=== PATIENT | female | born 1960 | race African-American/Black ===

== ENCOUNTER 2016-06-03 07:02 | Day surgery (SDC) | payer OTHER ==
[~2016-06-03] VITALS: Ht 167.6 cm; Wt 117.0 kg
[~2016-06-03 07:02] MED LIST: AMLODIPINE5 MG PO; ASPIRIN EC81 MG PO; CITALOPRAM40 MG PO; CLONIDINE0.1 MG PO; CLOZAPINE100 MG PO; DAILY-VITE1 TAB PO; KLOR-CON M2020 MEQ PO; LEVEMIR1000 UNITS SC; LOSARTAN POTASS50 MG PO; MAXZIDE-25MG1 COMBO PO; METFORMIN500 MG PO; RISPERIDONE2 MG PO; SIMVASTATIN10 MG PO; TRAZODONE50 MG PO; VISTARIL25 MG PO
[2016-06-03] MEDS ORDERED: PERCOCET 5/325M1 TAB PO (10:49)
[2016-06-03] MEDS ORDERED: LIDOCAINE22 EX (10:50)
[2016-06-03 11:14] VITALS: BP 132/66
== END 2016-06-03 11:20 | disposition other institution (70) | DRG 349 ==
LOC: ORM 07:02
PROVIDERS: ATTEND Surgery
PROC: 06BY0ZC Excision of Hemorrhoidal Plexus, Open Approach (ICD-10-PCS; principal; 2016-06-03)
PROC: 0HB8XZX Excision of Buttock Skin, External Approach, Diagnostic (ICD-10-PCS; 2016-06-03)
DX: K64.4 Residual hemorrhoidal skin tags (principal); I10 Essential (primary) hypertension; D04.5 Carcinoma in situ of skin of trunk; E11.9 Type 2 diabetes mellitus without complications; E78.00 Pure hypercholesterolemia, unspecified; F32.9 Major depressive disorder, single episode, unspecified; F41.1 Generalized anxiety disorder; A63.0 Anogenital (venereal) warts
CPT/HCPCS: J2710

== ENCOUNTER 2016-07-01 08:15 | Day surgery (SDC) | payer OTHER ==
[~2016-07-01] VITALS: Ht 170.2 cm; Wt 114.3 kg
[~2016-07-01 08:15] MED LIST changes: +CLOZAPINE ODT150 MG PO; +LIDOCAINE22 EX; +PERCOCET 5/325M1 TAB PO
[2016-07-01] MEDS ORDERED: LORTAB 5/3255 MG PO (10:31)
[2016-07-01 12:01] VITALS: BP 127/58
== END 2016-07-01 12:15 | disposition other institution (70) | DRG 607 ==
LOC: ORM 08:15
PROVIDERS: ATTEND Surgery
PROC: 0HB8XZX Excision of Buttock Skin, External Approach, Diagnostic (ICD-10-PCS; principal; 2016-07-01)
DX: D04.5 Carcinoma in situ of skin of trunk (principal); I10 Essential (primary) hypertension; E78.00 Pure hypercholesterolemia, unspecified; E11.9 Type 2 diabetes mellitus without complications; F32.9 Major depressive disorder, single episode, unspecified; F41.1 Generalized anxiety disorder

== ENCOUNTER → 2017-12-11 | Outpatient (REF) | payer OTHER ==
[~2017-12-11] MED LIST changes: +LORTAB 5/3255 MG PO
[2017-12-11 09:41] LABS: HEMATOCRIT 38.1 % (37.0-47.0); HEMOGLOBIN 12.1 g/dl (12.0-16.0); IMMATURE GRANULOCYTES 0.6 % (0.0-5.0); MEAN CELL VOLUME 81.9 fL CALC (80.0-100.0); MEAN CORPUSCULAR HGB CONC 31.8 g/L CALC (32.0-36.0); NEUT# 4.42 thou/uL (2.00-7.15); RED BLOOD COUNT 4.65 mill/uL (4.20-5.60); RED CELL DISTRI WIDTH 15.5 % (11.5-15.5)
== END | disposition home or self-care (01) ==
LOC: LAB 09:12
PROVIDERS: ATTEND Psychiatry & Neurology Psychiatry
DX: G47.09 Other insomnia (principal); Z51.81 Encounter for therapeutic drug level monitoring; Z79.899 Other long term (current) drug therapy

== ENCOUNTER 2018-01-06 07:15 | Inpatient (IN) | payer OTHER ==
[~2018-01-06] VITALS: Ht 170.2 cm; Wt 80.0 kg
--- NOTE | 2018-01-06 07:23 | NUR ---
EMS TO ER ROOM 9, TO BED
--- NOTE | 2018-01-06 07:30 | NUR ---
IV INITIATED AND LABS COLLECTED. PT REPORTS FEELING TIRED AND BILATERAL LOWER EXTREMITY PAIN. RIGHT LEG IS HOT TO THE TOUCH, WITH EDEMA. ULCER LIKE AREA NOTED TO THE LATERAL SIDE OF RIGHT LOWER LEG. MINIMAL SEROSANGUINEOUS DRAINAGE NOTED. PT MAEW AND DENIES ANY NEEDS AT THIS TIME. CALL ARTEM SWENSON.
[2018-01-06 08:07] LABS: ALBUMIN 3.2 g/dL (3.2-5.0); ALKALINE PHOSPHATASE 91 u/l (38-126); ANION GAP 9 (6-22 (CALC)); BILIRUBIN, TOTAL 0.6 mg/dL (0.0-1.4); BUN 16 mg/dL (7-17); BUN/CREATININE RATIO 29 (12-20 (CALC)); CARBON DIOXIDE 34 mmol/l (22-30); CHLORIDE 98 mmol/l (95-108); CREATININE 0.6 mg/dL (0.5-1.0); GFR > 60 ML/MIN (>=60 (CALC)); GFR FOR AFR.AMER. > 60 ML/MIN (>=60 (CALC)); POTASSIUM 3.3 mmol/l (3.5-5.1); SGOT/AST 28 u/l (14-36); SODIUM 139 mmol/l (137-146); TOTAL PROTEIN 6.6 g/dL (6.3-8.2)
--- NOTE | 2018-01-06 08:09 | NUR ---
CALL PLACED TO [facility], THEY WILL BE BRINGING PATIENT'S MEDICATION LIST TO THE HOSPITAL.
[2018-01-06 08:18] LABS: HEMATOCRIT 33.1 % (37.0-47.0); HEMOGLOBIN 10.7 g/dl (12.0-16.0); IMMATURE GRANULOCYTES 0.4 % (0.0-5.0); MEAN CELL VOLUME 80.7 fL CALC (80.0-100.0); MEAN CORPUSCULAR HGB 26.1 pG CALC (26.0-32.0); MEAN CORPUSCULAR HGB CONC 32.3 g/L CALC (32.0-36.0); NEUT# 12.63 thou/uL (2.00-7.15); RED BLOOD COUNT 4.1 mill/uL (4.20-5.60); RED CELL DISTRI WIDTH 14.8 % (11.5-15.5)
--- NOTE | 2018-01-06 08:45 | NUR ---
PT PKACED ON BED STRONG, URINE SAMPLE COLLECTED. IV REMAINS INTACT AND FREE FROM REDNESS OR EDEMA.
[2018-01-06 09:00] LABS: URINE BILIRUBIN - DIPSTICK NEGATIVE (NEGATIVE); URINE BLOOD DIPSTICK NEGATIVE (NEGATIVE); URINE COLOR YELLOW; URINE GLUCOSE - DIPSTICK >=1000 mg/dL (NEGATIVE); URINE KETONE NEGATIVE (NEGATIVE); URINE LEUK ESTERASE NEGATIVE (NEGATIVE); URINE NITRITE - DIPSTICK NEGATIVE (Negative); URINE PH 6.5 (4.5-8.0); URINE PROTEIN - DIPSTICK NEGATIVE (NEG-TRACE); URINE SPECIFIC GRAVITY <=1.005; URINE UROBILINOGEN - DIPSTICK 0.2 E.U./dL (0.2)
[2018-01-06 09:04] LABS: URINE CLARITY CLEAR
--- NOTE | 2018-01-06 09:05 | NUR ---
BREAKFAST TRAY SERVED. PT EATING WITH NO DIFFICULTY AND DENIES ANY OTHER NEEDS. CALL MCGILL WITHIN REACH.
--- NOTE | 2018-01-06 09:37 | NUR ---
PT REPORT TAKEN FROM LAURA PEACOCK.
--- NOTE | 2018-01-06 10:17 | NUR ---
BRENNAN spoke with regarding admission status and advised observation for the cellulitis. BRENNAN will confer with the attending when the patient arrives to [facility].
[2018-01-06] MEDS ORDERED: SIMVASTATIN10 MG PO (10:35)
[2018-01-06] MEDS ORDERED: CLOZAPINE100 MG PO (10:35)
[2018-01-06] MEDS ORDERED: LEVEMIR FL100 UNIT/M SC (10:36)
[2018-01-06] MEDS ORDERED: HYDROXYZ HCL25 MG PO (10:36)
[2018-01-06] MEDS ORDERED: AMMONIUM LAC122 EX (10:37)
--- NOTE | 2018-01-06 10:37 | NUR ---
PT RESTING QUIETLY ON STRETCHER WITH EYES CLOSED. OBTAINED MEDICATION RECONCILLIATION FORM FROM [facility]. UNKNOWN PHARMACY THAT THEY USE. IV SITE PATENT. VITAL SIGNS STABLE
[2018-01-06] MEDS ORDERED: TRAZODONE50 MG PO (10:38)
[2018-01-06] MEDS ORDERED: CITALOPRAM20 MG PO (10:39)
[2018-01-06] MEDS ORDERED: ASPIRIN LOW DOS81 MG PO (10:39)
[2018-01-06] MEDS ORDERED: RISPERIDONE2 MG PO (10:40)
[2018-01-06] MEDS ORDERED: LOSARTAN POT50 MG PO (10:40)
--- NOTE | 2018-01-06 11:02 | NUR ---
REPORT GIVEN TO MED SURG FOR CONTINUATION OF CARE.
--- NOTE | 2018-01-06 11:07 | NUR ---
PT ARRIVED ON THE UNIT VIA [facility] WITH DOUG PEACOCK.[facility]. PT PLEASANT. ORIENTED TO PERSON, PLACE, MONTH, YEAR. PT ABLE TO ANSWER MOST QUESTIONS APPROPRIATELY. ASSESSMENT COMPLETED AT THIS TIME. LUNG SOUNDS CLEAR BILATERALLY.HEART SOUNDS NORMAL. BS ACTIVE. SCANT EDEMA NOTED TO RIGHT LOWER LEG. ULCER AREA ALSO NOTED WITH NO DRAINAGE. LEFT KNEE ALSO HAS ULCER AREA NO DRAINAGE NOTED. PT HAS HX OF FREQUENT FALLS. LAST FALL ON 01/05 PER PT. PT IS AMBULATORY WITH MINIMAL ASSIST. #22 LAC FLUSHES WELL, NO REDNESS OR EDEMA NOTED. PT REQUESTING TO WATCH SOME TV. NO COMPLAINTS AT THIS TIME. PT ORIENTED TO ROOM AND CALL [facility]. PT VERBALIZES UNDERSTANDING.
--- NOTE | 2018-01-06 11:18 | NUR ---
S: PRISCILA ELIAS is a 57 F who presents with cellulitis of lower right leg. She has a history of diabetes, hypertension, and mental disorder . All medications in patient's chart were reviewed. O: VS: BP 157/62mmHg, P 82, RR 18,T 97.5 W= 80 kg, HT= 170.18cm, Scr=0.6, CrCl= 99.39 ml/min A: Blood culture is pending. P: Patient received Rocephin 1gm on 01/06/18 at 0800 . Vancomycin ordered for pharmacy to dose. First dose of Vancomycin administered to patient in ED this morning. Start Vancomycin 1 gm IV Q8H @ 0000,0800,1600. Vancomycin trough to be drawn before the 4th dose on 01/07/18 @ 0730. Vancomycin goal trough is between 10-15 mcg/ml. Pharmacy will follow and or advise on antibiotics use as needed.
--- NOTE | 2018-01-06 11:18 | NUR ---
PT TO MED SURG PER ZULLY.
[2018-01-06 11:25] VITALS: BP 164/54
[2018-01-06 12:55] LABS: TSH, 3RD GENERATION 0.43 uIU/mL (0.47 - 4.68)
--- NOTE | 2018-01-06 13:40 | NUR ---
PT TO ULTRASOUND VIA WHEELCHAIR WITH STAFF
--- NOTE | 2018-01-06 14:13 | NUR ---
PT RETURNED FROM [facility] VIA WHEELCHAIR. ASSISTED BACK INTO BED. PT NOW RESTING QUIETLY.
--- NOTE | 2018-01-06 15:56 | NUR ---
PT RESTING IN BED WITH EYES CLOSED. NO S/S OF DISTRESS.
[2018-01-06 16:00] VITALS: BP 136/73
--- NOTE | 2018-01-06 16:00 | NUR ---
PT CURRENT TEMP 100.3. BLANKETS REMOVED AND AC LOWERED,WILL MONITOR FOR EFFECTIVENESS
--- NOTE | 2018-01-06 17:00 | NUR ---
TEMP RE-CHECK 100.0; NOTIFIED AND NEW ORDER RECEIVED FOR TYLENOL;BLANKETS TO REMAIN REMOVED AND AC LOWERED ;WILL CONTINUE TO MONITOR
--- NOTE | 2018-01-06 17:00 | NUR ---
IV SITE TO LAC FOUND DISLODGED WITH CATHETER INTACT;NEW #22G STARTED TO RIGHT FOREARM ON SECOND ATTEMPT BY RED JOHN,PT TOLERATED WELL;WILL CONTINUE TO MONITOR
--- NOTE | 2018-01-06 17:28 | NUR ---
PT MEDICATED WITH TYLENOL 650MG PO FOR TEMP OF 100.0. WILL MONITOR FOR EFFECTIVENESS
[2018-01-06 19:10] VITALS: BP 143/64
--- NOTE | 2018-01-06 19:30 | NUR ---
BEDSIDE REORT RECEIVED FROM RED PRADHAN. PT RESTING IN BED SUPINE WITH EYES CLOSED. AWAKENS TO TACTILE STIMULATION; ALERT AND OREINTED. DENIES PAIN. RESPIRATIONS EVEN AND UNLABORED ON ROOM AIR. PLAN OF CARE DISCUSSED. PT ENCOURAGED TO VERBALIZE CONCERNS. STATES UNDERSTANDING. SAFETY MEASURES IN PLACE. CALL LIGHT WITHIN REACH.
--- NOTE | 2018-01-06 22:04 | NUR ---
BLOOD GLUCOSE ELEVATED AT HS 324. DR. HIRSCH NOTIFIED AND ORDERED MEDIUM COVERAGE S/S INSULIN AT HS. 7 UNITS GIVEN; PT DECINED SNACK. WILL CONTINUE TO MONITOR FOR HYPOGLYCEMIA THROUGHOUT THE NIGHT.
--- NOTE | 2018-01-07 00:23 | NUR ---
PT IS ASLEEP AT THIS TIME WITH NO SIGNS OF DISTRESS. RESPIRATIONS EVEN AND UNLABORED ON ROOM AIR. VANCOMYCIN INFUSING AT THIS TIME WITHOUT DIFFICULTY; IV SITE APPEARS HEALTHY. PT REMAINS ONE PERSON ASSIST. NO REQUESTS OR CONCERNS AT THIS TIME. SAFETY MEASURES IN PLACE INCLUDING BED ALARM. CALL LIGHT WITHIN REACH.
--- NOTE | 2018-01-07 04:18 | NUR ---
PT UP ONCE TO BS TO VOID 600ML CLEAR DARK YELLOW URINE; OTHERWISE HAS NOT USED CALL LIGHT. REPOSITIONS SELF ON BED. LETHARGIC FOR MOST OF SHIFT AND HAS TO BE ASKED QUESTIONS A FEW TIMES BEFORE ANSWERING. FLAT AFFECT. NO ACUTE CHANGES IN CONDITION THROUGHOUT THE NIGHT. SAFETY MEASURES IN PLACE. CALL LIGHT WITHIN REACH.
[2018-01-07 04:30] VITALS: BP 172/86
[2018-01-07 05:54] LABS: HEMATOCRIT 34.9 % (37.0-47.0); HEMOGLOBIN 11.1 g/dl (12.0-16.0); IMMATURE GRANULOCYTES 0.5 % (0.0-5.0); MEAN CELL VOLUME 82.3 fL CALC (80.0-100.0); MEAN CORPUSCULAR HGB 26.2 pG CALC (26.0-32.0); MEAN CORPUSCULAR HGB CONC 31.8 g/L CALC (32.0-36.0); NEUT# 7.82 thou/uL (2.00-7.15); RED BLOOD COUNT 4.24 mill/uL (4.20-5.60); RED CELL DISTRI WIDTH 15.3 % (11.5-15.5)
[2018-01-07 06:04] LABS: CHOLESTEROL HDL RATIO 2.2 (<4.4 (CALC))
[2018-01-07 06:05] LABS: ALBUMIN 3.1 g/dL (3.2-5.0); ALKALINE PHOSPHATASE 98 u/l (38-126); ANION GAP 10 (6-22 (CALC)); BILIRUBIN, TOTAL 0.5 mg/dL (0.0-1.4); BUN 13 mg/dL (7-17); BUN/CREATININE RATIO 22 (12-20 (CALC)); CARBON DIOXIDE 32 mmol/l (22-30); CHLORIDE 105 mmol/l (95-108); CREATININE 0.6 mg/dL (0.5-1.0); GFR > 60 ML/MIN (>=60 (CALC)); GFR FOR AFR.AMER. > 60 ML/MIN (>=60 (CALC)); POTASSIUM 3.6 mmol/l (3.5-5.1); SGOT/AST 26 u/l (14-36); SODIUM 143 mmol/l (137-146); TOTAL PROTEIN 6.6 g/dL (6.3-8.2)
[2018-01-07 06:17] VITALS: BP 178/76
--- NOTE | 2018-01-07 07:32 | NUR ---
WALL STEAMER AT BEDSIDE FOR VANCO TROUGH.
--- NOTE | 2018-01-07 08:00 | NUR ---
PT RESTING QUIETLY IN BED WITH EYES CLOSED. ASSESMENT COMPLETED AT THIS TIME (SEE INTERVENTION). LUNG SOUNDS CLEAR BILATERALY. HEART SOUNDS NORMAL, ACTIVE BOWEL SOUNDS. RIGHT LEG AREA HAS SEROSANGUINEOUS DRAINAGE NOTED, +2 PITTING EDEMA TO RIGHT LEG WELL.NO ODOR NOTED. PT BP REMAINS HIGH 189/85 HR 85. WILL MAKE MD AWARE OF CONTINUING BP ELEVATION.#22 RFA FLUSHES WELL, NO REDNESS OR EDEMA. PT VOICING NO COMPLAINTS. WILL CONTINUE TO MONITOR.
--- NOTE | 2018-01-07 08:30 | NUR ---
SPOKE TO EXTRUSION DIE CORRECTOR ABOUT PTS BLOOD PRESSURE. WILL PUT IN NEW ORDERS.
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
--- NOTE | 2018-01-07 10:45 | NUR ---
SPOKE TO NOE WITH CASE MANAGEMENT ABOUT PT NOT WANTING TO RETURN TO HER CURRENT HOME. INSTRUCTED TO CALL DCF.
--- NOTE | 2018-01-07 11:00 | NUR ---
SPOKE TO ANDREY ID #[id number], INFO GIVEN AND CASE ACCEPTED.
--- NOTE | 2018-01-07 11:10 | NUR ---
S: PRISCILA ELIAS is a 57 F who presents with cellulitis of the right leg from the mid calf down. She has a history of diabetes and hypertension. All medications in patient's chart were reviewed. O: VS: BP 180/77 mmHg, P 81, RR 18,T 96.9 W 80 kg, HT 70.18 cm, Scr= 0.6,CrCl= 99.39 ml/min A: Blood culture shows no growth after 24 hours-preliminary. Wound culture is pending. P: Patient is on vancomycin 1 gm Q8H. Vancomycin ordered for pharmacy to dose. Continue Vancomycin 1 gm IV Q8H. Vancomycin trough drawn 01/07/18 is 13. Vancomycin goal trough is between 10-15 mcg/ml. Pharmacy will follow and or advise on antibiotics use as needed.
[2018-01-07 11:34] VITALS: BP 150/68
--- NOTE | 2018-01-07 13:34 | NUR ---
PRISCILA RIVAS CALLED FROM DCF INFO GIVEN
--- NOTE | 2018-01-07 13:52 | NUR ---
PT RESTING QUIETLY IN BED. NO COMPLAINTS AT THIS TIME. CALL [facility]ILL IN REACH
--- NOTE | 2018-01-07 14:36 | NUR ---
Spoke to patient about medications, patient did not have any questions
[2018-01-07 15:00] VITALS: BP 152/66
--- NOTE | 2018-01-07 16:00 | NUR ---
PT RESTING IN BED. MEDICATED PER ORDER. PT ASKED PAGE DESIGNER IF I TALKED TO THE DR ABOUT HER HOME. PAGE DESIGNER INFORMED PT SHE DID. PT WAS APPRECIATIVE.
[2018-01-07 19:00] VITALS: BP 166/77
--- NOTE | 2018-01-07 19:15 | NUR ---
REPORT RECEIVED FROM DAY NURSE. PT IS IN BED W/LIGHTS AND TV OFF SLEEPING. NO S/S OF DISTRESS, CALL LIGHT IS AT BEDSIDE.
--- NOTE | 2018-01-07 23:57 | NUR ---
PT IS SLEEPING BUT AWOKE TO MY VOICE WHEN I ENTERED THE ROOM. PT MEDICATED W/IV ANTIBIOTIC THERAPY. NO OTHER S/O DISTRESS NOTED. CALL LIGHT W/IN REACH ALONG W/BST AND PO FLUIDS
--- NOTE | 2018-01-08 03:50 | NUR ---
PT IS SLEEPING SOUNDLY. NO S/S OF DISTRESS NOTED. CALL LIGHT AT BEDSIDE. WILL CONTINUE TO MONITOR.
[2018-01-08 04:03] VITALS: BP 162/71
[2018-01-08 06:49] VITALS: BP 166/76
[2018-01-08 06:49] LABS: HEMATOCRIT 32.9 % (37.0-47.0); HEMOGLOBIN 10.4 g/dl (12.0-16.0); IMMATURE GRANULOCYTES 0.5 % (0.0-5.0); MEAN CORPUSCULAR HGB 25.9 pG CALC (26.0-32.0); MEAN CORPUSCULAR HGB CONC 31.6 g/L CALC (32.0-36.0); NEUT# 5.03 thou/uL (2.00-7.15); RED BLOOD COUNT 4.01 mill/uL (4.20-5.60)
[2018-01-08 07:06] LABS: ALKALINE PHOSPHATASE 119 u/l (38-126); ANION GAP 10 (6-22 (CALC)); BILIRUBIN, TOTAL 0.4 mg/dL (0.0-1.4); BUN 13 mg/dL (7-17); BUN/CREATININE RATIO 18 (12-20 (CALC)); CARBON DIOXIDE 34 mmol/l (22-30); CHLORIDE 103 mmol/l (95-108); CREATININE 0.7 mg/dL (0.5-1.0); GFR > 60 ML/MIN (>=60 (CALC)); GFR FOR AFR.AMER. > 60 ML/MIN (>=60 (CALC)); MAGNESIUM 1.9 mg/dL (1.6-2.3); POTASSIUM 3.7 mmol/l (3.5-5.1); SGOT/AST 36 u/l (14-36); SODIUM 142 mmol/l (137-146); TOTAL PROTEIN 6.6 g/dL (6.3-8.2)
--- NOTE | 2018-01-08 07:15 | NUR ---
PT FOUND IN RESTROOM BY HERSELF. BRUSHING HER TEETH. MARKET MAKER REINFORCED USE OF CALL MCGILL FOR SAFTEY. PT ASSISTED INTO CHAIR PER REQUEST. CALL [facility]ILL IN REACH. WILL CONTINUE.
--- NOTE | 2018-01-08 08:00 | NUR ---
PT RESTING IN CHAIR AT THIS TIME. ASSESMENT COMPLETED AT THIS TIME(SEE INTERVENTIONS). LUNG SOUNDS CLEAR. BS ACTIVE. HEART SOUNDS NORMAL S1/S2. VS STABLE AT THIS TIME. BLOOD PRESSURE 134/68 HR 59. #22 IN R WRIST FLUSHES WELL, NO REDNESS OR EDEMA. PT REMAINS IN CHAIR AT THIS TIME. PT VOICING NO COMPLAINTS AT THIS TIME. CALL [facility]ILL IN REACH. WILL CONTINUE TO MONITOR.
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
--- NOTE | 2018-01-08 10:49 | NUR ---
DR HERNDON AND THEODORE WILSON SPEAK WITH PT PLAN OF CARE DISCUSSED.
[2018-01-08 11:30] VITALS: BP 155/72
--- NOTE | 2018-01-08 14:00 | NUR ---
PT RESTING IN BED NOW COMPLAINTS AT THIS TIME.
--- NOTE | 2018-01-08 14:26 | NUR ---
PT RESTING QUIETLY IN CHAIR . NO COMPLAINTS AT THIS TIME.
[2018-01-08 16:46] VITALS: BP 159/78
--- NOTE | 2018-01-08 18:44 | NUR ---
PT ASSISTED IN SHOWER BY CRYSTAL DRY CELL TESTER.
--- NOTE | 2018-01-08 19:00 | NUR ---
BEDSIDE REPORT RECEIVED FROM RED PRADHAN. PT RESTING IN BED ON RIGHT SIDE WITH EYES CLOSED; AWAKENS TO TACTILE STIMULI; DROWSY. ANSWERS QUESTIONS IN SHORT REPLYS. DENIES PAIN. RESPIRATIONS EVEN AND UNLABORED ON ROOM AIR. DRESSING TO RLE CDI. PLAN OF CARE REVIEWED. PT ENCOURAGED TO VERBALIZE CONCERNS. STATES UNDERSTANDING. SAFETY MEASURES IN PLACE. CALL LIGHT WITHIN REACH.
[2018-01-08 19:31] VITALS: BP 159/70
--- NOTE | 2018-01-08 23:54 | NUR ---
PT UP TO BATHROOM FOR SECOND VOID OF THE SHIFT; AMBULATES WITH STAND BY ASSIST. VANCOMYCIN INFUSING AT THIS TIME; IV SITE APPEARS HEALTHY. SKIN FELT DAMP AND HOT; TEMPERATURE OF 100.5. REMOVED BLANKETS AND COOLED ROOM; WILL REASSESS. PT DECLINED HS SNACK; WILL MONITOR FOR HYPOGLYCEMIA. NO REQUESTS AT THIS TIME. SAFETY MEASURES IN PLACE. CALL LIGHT WITHIN REACH.
[2018-01-09] VITALS (11 sets, daily range): BP systolic 141–205; BP diastolic 62–86
--- NOTE | 2018-01-09 04:58 | NUR ---
BLOOD PRESSURE ELEVATED; PRN CLONIDINE ADMINSITERED. NO OTHER CHANGES THROUGHOUT THE NIGHT. CALL LIGHT WITHIN REACH.
--- NOTE | 2018-01-09 06:02 | NUR ---
DRESSING CHANGED TO RLE; MODERATE AMOUNT OF SANGUINOUS DRAINGAGE NOTED TO DRESSING; PHOTOS IN CHART. PT AMBUALTED TO BATHROOM, HOWEVER VERY DROWZY AND WEAK IN BED; UNABLE TO HOLD LEG IN A BENT POSITION FOR DRESSING CHANGE. BLOOD SUGAR 281. BLOOD PRESSURE REMAINS ELEVATED AFTER CLONIDINE. PT AND GOWN NOTED TO BE WET WITH SWEAT; TEMPERATURE CURRENTLY 99.3; LINENS CHANGED.
[2018-01-09 06:08] LABS: HEMATOCRIT 31.9 % (37.0-47.0); HEMOGLOBIN 10.2 g/dl (12.0-16.0); IMMATURE GRANULOCYTES 0.4 % (0.0-5.0); MEAN CORPUSCULAR HGB 26.2 pG CALC (26.0-32.0); NEUT# 3.78 thou/uL (2.00-7.15); RED BLOOD COUNT 3.89 mill/uL (4.20-5.60); RED CELL DISTRI WIDTH 15.1 % (11.5-15.5)
[2018-01-09 06:39] LABS: ALBUMIN 2.7 g/dL (3.2-5.0); ALKALINE PHOSPHATASE 112 u/l (38-126); ANION GAP 8 (6-22 (CALC)); BILIRUBIN, TOTAL 0.2 mg/dL (0.0-1.4); BUN 20 mg/dL (7-17); BUN/CREATININE RATIO 32 (12-20 (CALC)); CARBON DIOXIDE 33 mmol/l (22-30); CHLORIDE 106 mmol/l (95-108); CREATININE 0.6 mg/dL (0.5-1.0); GFR > 60 ML/MIN (>=60 (CALC)); GFR FOR AFR.AMER. > 60 ML/MIN (>=60 (CALC)); MAGNESIUM 1.9 mg/dL (1.6-2.3); POTASSIUM 4.1 mmol/l (3.5-5.1); SGOT/AST 30 u/l (14-36); SODIUM 143 mmol/l (137-146); TOTAL PROTEIN 5.9 g/dL (6.3-8.2)
--- NOTE | 2018-01-09 07:00 | NUR ---
PT REPORT RECIEVED FROM MADONNA MONTIEL. PT SLEEPING IN BED. NO S/S OF DISTRESS. CALL LIGHT IN REACH. WILL CONTINUE TO MONITOR
--- NOTE | 2018-01-09 07:41 | NUR ---
PT ASSESSMENT COMPLETE. A/OX3. SPEECH IS CLEAR. RESP EVEN AND UNLABORED. LUNG SOUNDS CLEAR. ABDOMEN DISTENDED,SOFT. BOWEL SOUNDS ACTIVE X4. PT STATES LAST BM 01/08/18, BROWN AND LOOSE. STRONG RADIAL AND PEDAL PULSES. #22 RFA SL. FLUSHED AND PT. SITE APPEARS HEALTHY. PT HAS DRESSING TO RLE,CDI. +2 PITTING EDEMA NOTED. ENCOURAGED ELEVATION. TWO HEALED WOUNDS TO LLE. PT DENIES ANY PAIN OR NEEDS AT THIS TIME. POC DISCUSSED. SAFETY PRECAUTIONS IN PLACE. CALL LIGHT IN REACH. WILL CONTINUE TO MONITOR
--- NOTE | 2018-01-09 09:26 | NUR ---
PT HAS 2 HEALED WOUNDS TO LT AC. LIFE SCIENCE TECHNICAL OFFICER. CLEANED AND DRY. DRESSING TO RLE REMOVED. MODERATE SEROSANGUINOUS DRAINAGE NOTED. NO ODOR PRESENT. CLEANED AND SILVADENE, ADAPATIC, STERILE 4X4 GUAZE, AND KERLIX APPLIED. LEGS ELEVATED ON PILLOW.
--- NOTE | 2018-01-09 10:30 | NUR ---
PRELIMINARY BLOOD CULTURE RESULTS CALLED TO NO NEW ORDERS AT THIS TIME
--- NOTE | 2018-01-09 12:29 | NUR ---
PT SLEEPING IN RECLINER. NO S/S OF DISTRESS. RESP EVEN AND UNLBAORED. PT DENIES ANY PAIN OR NEEDS AT THIS TIME. LEGS ELEVATED ON A PILLOW. CALL LIGHT IN REACH. WILL CONTINUE TO MONITOR.
--- NOTE | 2018-01-09 16:25 | NUR ---
PT SLEEPING IN BED. NO S/S OF DISTRESS. RESP EVEN AND UNLABORED. TELE IN PLACE. PT DENIES ANY PAIN OR NEEDS AT THIS TIME. CALL LIGHT IN REACH. WILL CONTINUE TO MONITOR
--- NOTE | 2018-01-09 17:15 | NUR ---
MANUAL BP 205/86 HR 64, NOTIFIED OF ELEVATED BP AND WILL PLACE NEW ORDERS MOMENTARILY.
--- NOTE | 2018-01-09 17:45 | NUR ---
PT SECOND DRESSING CHANGE DONE. DRESSING REMOVED. MODERATE AMOUNT OF SEROSANGUINOUS DRAINAGE VISIBLE. +2 PITTING EDEMA. CLEANED W/ SILVADENE, ADAPTIC, 4X4 STERILE GUAZE, AND KERLIX APPLIED. LEGS ELEVATED ON A PILLOW. WILL CONTINUE TO MONITOR
--- NOTE | 2018-01-09 17:59 | NUR ---
PT MEDICATED W/ 0.5 ML APRESOLINE FOR BP READING OF 205/86, PULSE 64. WILL CONTINUE TO MONITOR
--- NOTE | 2018-01-09 18:15 | NUR ---
PT DENIES ANY SYMTOMS AT THIS TIME. RESP EVEN ANDN UNLABORED. VS RECHECK. BP 150/69. PULSE 69. PT VERY DROWSY AT TIME. WILL CONTINUE TO MONITOR
--- NOTE | 2018-01-09 18:49 | NUR ---
PT BP RECHECKED. BP 141/70, PULSE 69. PT SLEEPING AT THIS TIME. NO S/S OF DISTRESS. WILL CONTINUE TO MONITOR
--- NOTE | 2018-01-09 19:02 | NUR ---
NEW IV START BY RED JOHN. SUCCESSFUL IV INSERTION. #22 RW SL. FLUSHED AND PATENT. SITE APPEARS HEALTHY
--- NOTE | 2018-01-09 19:10 | NUR ---
BEDSIDE REPORT RECEIVED FROM RED TAMAYO. PT RESTING IN BED ON LEFT SIDE WITH EYES CLOSED; AWAKENS TO TACTILE STIMILI; DROWSY AND DOES NOT OPEN EYES. NO SIGNS OF DISTRESS. RESPIRATIONS EVEN AND UNLABORED ON ROOM AIR. REMAINS ON CONTACT PRECAUTIONS FOR MRSA. DRESSING TO RLE CDI. SAFETY MEASURES IN PLACE. CALL LIGHT WITHIN REACH.
[2018-01-10] VITALS (8 sets, daily range): BP systolic 158–197; BP diastolic 60–82
--- NOTE | 2018-01-10 | NUR ---
PT ASLEEP AT THIS TIME WITH NO SIGNS OF DISTRESS. RESPIRATIONS EVEN AND UNLABROED ON ROOM AIR. VANCOMYCIN INFUSING AT THIS TIME WITHOUT DIFFICULTY; IV SITE APPEARS HEALTHY. PT IS STAND BY ASSIST. SAFETY MEASURES IN PLACE. CALL LIGHT WITHIN REACH.
--- NOTE | 2018-01-10 04:33 | NUR ---
BLOOD PRESSURE ELEVATED; IV HYDRALAZINE ADMINISTERED. DRESSING TO RLE WITH SMALL AMOUNT OF BLOODY DRAINAGE; DRESSING REPLACED PER ORDERS; PT TOLERATED WELL. NO ACUTE CHANGES IN CONDITION THROUGHOUT THE NIGHT. NO REQUESTS OR CONCERNS AT THIS TIME. CALL LIGHT WITHIN REACH.
[2018-01-10 05:31] LABS: HEMATOCRIT 31.7 % (37.0-47.0); HEMOGLOBIN 10.2 g/dl (12.0-16.0); IMMATURE GRANULOCYTES 2.2 % (0.0-5.0); MEAN CELL VOLUME 81.9 fL CALC (80.0-100.0); MEAN CORPUSCULAR HGB 26.4 pG CALC (26.0-32.0); MEAN CORPUSCULAR HGB CONC 32.2 g/L CALC (32.0-36.0); NEUT# 3.59 thou/uL (2.00-7.15); RED BLOOD COUNT 3.87 mill/uL (4.20-5.60); RED CELL DISTRI WIDTH 14.9 % (11.5-15.5)
[2018-01-10 05:46] LABS: ALBUMIN 2.7 g/dL (3.2-5.0); ALKALINE PHOSPHATASE 113 u/l (38-126); ANION GAP 8 (6-22 (CALC)); BILIRUBIN, TOTAL 0.3 mg/dL (0.0-1.4); BUN 15 mg/dL (7-17); BUN/CREATININE RATIO 24 (12-20 (CALC)); CARBON DIOXIDE 32 mmol/l (22-30); CHLORIDE 105 mmol/l (95-108); CREATININE 0.6 mg/dL (0.5-1.0); GFR > 60 ML/MIN (>=60 (CALC)); GFR FOR AFR.AMER. > 60 ML/MIN (>=60 (CALC)); MAGNESIUM 1.7 mg/dL (1.6-2.3); POTASSIUM 3.9 mmol/l (3.5-5.1); SGOT/AST 28 u/l (14-36); SODIUM 141 mmol/l (137-146); TOTAL PROTEIN 6.1 g/dL (6.3-8.2)
--- NOTE | 2018-01-10 07:10 | NUR ---
REPORT RECEIVED FROM MADONNA MATHEWS, PT APPEARS TO BE SLEEPING, RESP EVEN AND UNLABORED. WILL CONTINUE TO MONITOR.
--- NOTE | 2018-01-10 07:27 | NUR ---
ASSESSMENT COMPLETED; PT A/O X3; RESP EVEN AND UNLABORED ON ROOM AIR; PT STATED SHE WANTS A SHOWER; IV SITE S/L, SITE APPEARS HEALTHY AND FLUSHED FREELY; BOTH EYES APPEAR WATERY; TWO HEALED WOUNDS NOTED TO LLL; AMT OF SANGUINOUS DRAINAGE NOTED ON DRESSING TO RLL; +2 PITTING EDEMA NOTED ON RLL; PT ENCOURAGE TO ELEVATED LEGS; PT DENIES ANY NEEDS; WILL CONTINUE TO MONITOR.
--- NOTE | 2018-01-10 08:23 | NUR ---
PT SITTING UP IN RECLINER EATING BREKFAST; NO S/S OF DISTRESS NOTED; MEDICATED PER EMAR.
--- NOTE | 2018-01-10 09:55 | NUR ---
ANDRÉS JAIMES AT BEDSIDE TO DISCUSS POC. PT SITTING UP IN RECLINER, CALL MCGILL IN REACH.
--- NOTE | 2018-01-10 10:25 | NUR ---
PT CALLED FOR ASSISTANCE TO THE BATHROOM. PT VOIDED 300 CC CLEAR YELLOW URINE. PT BACK IN RECLINER, LEGS ELEVATED, IV INFUSING.
--- NOTE | 2018-01-10 10:57 | NUR ---
DR VELIZ & ANDRÉS JAIMES AT BEDSIDE TO DISCUSS POC.
--- NOTE | 2018-01-10 11:43 | NUR ---
PT REMIAN SITTING UP IN RECLINER, LEGS ELEVATED WITH A PILLOW; PT EATING LUNCH; EYE CULTURE OBTAINED FROM BOTH EYES; SENT TO LAB.
--- NOTE | 2018-01-10 13:59 | NUR ---
PT TOOK A SHOWER, TOLERATED WELL, AMBULATED WITH STEADY GAIT; WOUND TO RLL CLEANED WITH SALINE, SILVADINE CREAM APPLIED, ADAPTIVE DRESSING, 4X4 DRESSING APPLIED, REINFORCED WITH ABD PAD AND CURLEX. EYE DROPS ADMINISTERED TO BILAT EYES; L. NARE CULTURE OBTAINED AND SENT TO LAB. PT VOICED NO COMPLAINS; NO S/S OF DISTRESS NOTED.
--- NOTE | 2018-01-10 15:17 | NUR ---
HYDRALAZIN PO ADMINISTERED PER EMAR; PT RESTING QUIETLY IN BED; RESP EVEN AND UNLABORED; PT VOICED NO CONCERNS; NO S/S OF DISTRESS NOTED; CALL MCGILL IN REACH. WILL CONTINUE TO MONITOR.
--- NOTE | 2018-01-10 17:30 | NUR ---
PT SITTING UP IN BED EATING SUPPER; PT VOICED NO CONCERNS; RESP EVEN AND UNLABORED. BED IN LOW LOCKED POSITION, CALL MCGILL IN REACH.
--- NOTE | 2018-01-10 19:00 | NUR ---
BEDSIDE REPORT RECEIVED FROM RED SUTTON. PT RESTING IN BED ON RIGHT SIDE WITH EYES CLOSED. AWAKENS TO VERBAL STIMULI. DENIES PAIN. RESPRIATIONS EVEN AND UNLABORED ON ROOM AIR. PLAN OF CARE REVIEWED. PT ENCOURAGED TO VERBALIZE CONCERNS. STATES UNDERSTANDING. SAFETY MEASURES IN PLACE. CALL LIGHT WITHIN REACH.
--- NOTE | 2018-01-10 19:15 | NUR ---
PT TRANSPORTED TO RADIOLOGY FOR ECHO VIA WHEELCHAIR WITH [facility] STAFF.
--- NOTE | 2018-01-10 21:10 | NUR ---
DRESSING CHANGESD; HS SNACK GIVEN.
[2018-01-11] VITALS (10 sets, daily range): BP systolic 137–188; BP diastolic 60–88
--- NOTE | 2018-01-11 00:08 | NUR ---
BLOOD PRESSURE ELEVATED AT 188/74 P 65; APRESOLINE GIVEN IV; WILL REASSESS. VANCOMYCIN INFUSING AT THIS TIME WITHOUT DIFFICULTY; IV SITE APPEARS HEALTHY. PT ASLEEP AT THIS TIME WITH NO SIGNS OF DISTRESS; KEEPS EYES CLOSED DURING VS AND MEDICATIONS. SBA. SAFETY MEASURES IN PLACE. CALL LIGHT WITHIN REACH.
--- NOTE | 2018-01-11 05:01 | NUR ---
BLOOD PRESSURE REMAINS ELEVATED; APRESOLINE GIVEN AGAIN AT THIS TIME. NO ACUTE CHANGES IN CONDITION THROUGHOUT THE NIGHT. PT HAS NO REQEUSTS OR CONCERNS. DRESSING TO RLE IS CDI. SAFETY MEASURES IN PLACE. CALL LIGHT WITHIN REACH.
[2018-01-11 05:21] LABS: HEMATOCRIT 30.5 % (37.0-47.0); HEMOGLOBIN 9.8 g/dl (12.0-16.0); IMMATURE GRANULOCYTES 0.7 % (0.0-5.0); MEAN CELL VOLUME 81.3 fL CALC (80.0-100.0); MEAN CORPUSCULAR HGB 26.1 pG CALC (26.0-32.0); MEAN CORPUSCULAR HGB CONC 32.1 g/L CALC (32.0-36.0); NEUT# 3.44 thou/uL (2.00-7.15); RED BLOOD COUNT 3.75 mill/uL (4.20-5.60); RED CELL DISTRI WIDTH 14.8 % (11.5-15.5)
[2018-01-11 05:27] LABS: ALBUMIN 2.6 g/dL (3.2-5.0); ALKALINE PHOSPHATASE 108 u/l (38-126); ANION GAP 6 (6-22 (CALC)); BILIRUBIN, TOTAL 0.2 mg/dL (0.0-1.4); BUN 16 mg/dL (7-17); BUN/CREATININE RATIO 25 (12-20 (CALC)); CARBON DIOXIDE 33 mmol/l (22-30); CHLORIDE 105 mmol/l (95-108); CREATININE 0.6 mg/dL (0.5-1.0); GFR > 60 ML/MIN (>=60 (CALC)); GFR FOR AFR.AMER. > 60 ML/MIN (>=60 (CALC)); MAGNESIUM 1.7 mg/dL (1.6-2.3); POTASSIUM 3.8 mmol/l (3.5-5.1); SGOT/AST 22 u/l (14-36); SODIUM 141 mmol/l (137-146); TOTAL PROTEIN 5.8 g/dL (6.3-8.2)
--- NOTE | 2018-01-11 07:33 | NUR ---
REPORT RECEIVED FROM MADONNA MATHEWS; PT LAYING IN BED WITH EYES CLOSED ON R. SIDE; RESP EVEN AND UNLABORED; PT SEEMS SLEEPY; A/O X2; AFTER SEVERAL ATTEMPTS PT WAS ABLE TO GIVE HER FULL ; PT STATED SHE WANTS TO GO HOME; VITALS OBTAINED BP 150/64, HR 72; LUNGS CLEAR; ACTIVE BOWEL SOUND; PULSES STRONG; DRESSING TO R. LEG CDI; L. PT ENCOURAGE TO CALL FOR ASSISTANCE; POC DISCUSSED; WILL CONTINUE TO MONITOR.
--- NOTE | 2018-01-11 08:29 | NUR ---
MEDICATED PER EMAR; IV FLUSHED WITHOUT DIFFICULTY, SITE APPEARS HEALTHY; PT VOICED NO CONCERNS; PT REMAIN SLEEPY; WILL CONTINUE TO MONITOR.
--- NOTE | 2018-01-11 08:34 | NUR ---
STOREKEEPER HELPER IN ROOM TO ASSIST PT WITH A SHOWER.
--- NOTE | 2018-01-11 09:38 | NUR ---
ASSISTED PT TO THE BATHROOM, PT VOIDED 300CC, LANA URINE; PT WALKED WITH STEADY GAIT; DRESSING REPLACED PER ORDER; PT TOLERATED WELL;
--- NOTE | 2018-01-11 10:37 | NUR ---
DR HERNDON AT BEDSIDE TO DISCUSS POC
--- NOTE | 2018-01-11 11:24 | NUR ---
ASSISTED PT TO THE RECLINER, PT AMBULATED WITH STEADY GAIT; VANCO INFUSING WITHOUT DIFFICULTY; CALL MCGILL IN REACH
--- NOTE | 2018-01-11 12:27 | NUR ---
OFFERED PT PRUNE JUICE FOR CONSTIPATION, PT STATED "I DONT WANT IT, I HAD A BM YESTERDAY" ADVISED PT NOT TO FLUSH TOILET. ASSISTED PT BACK TO BED, CALL LIGHT IN REACH.
--- NOTE | 2018-01-11 15:36 | NUR ---
PT LAYING IN BED ON HER R. SIDE; RESP EVEN AND UNLABORED, NO S/S OF DISTRESS NOTED; IV SITE REMAINS HEALTHY, FLUSHED FREELY; WILL CONTINUE TO MONITOR.
--- NOTE | 2018-01-11 19:34 | NUR ---
BEDSIDE REPORT RECEIVED FROM RED SUTTON. PT RESTING IN BED SUPINE WITH EYES CLOSED; AWAKNED SPONTANEOUSLY AND ANSWERED QUESTIONS; DROWSY AND ORIENTED. DENIES PAIN CURRENTLY. RESPIRATIONS EVEN AND UNLABORED ON ROOM AIR. PT FOLLOWS COMMANDS WELL AND COOPERATES WITH ASSESSMENT. PLAN OF CARE REVIEWED. PT ENCOURAGED TO VERBALIZE CONCERNS. STATES UNDERSTANDING. SAFETY MEASURES IN PLACE. CALL LIGHT WITHIN REACH.
[2018-01-12] VITALS (7 sets, daily range): BP systolic 145–183; BP diastolic 64–80
--- NOTE | 2018-01-12 00:03 | NUR ---
PT UP TO BATHROOM AT THIS TIME; AMBULATED TO BATHROOM INDEPENDENTLY. CALL LIGHT SYSTEM REINFORCED AND PT REMINDED TO CALL FOR ASSISTANCE. DENIES PAIN. TYLENOL GIVEN AT HS FOR TEMPERATURE OF 100.3; CURRENTLY TEMPERATURE REMAINS 100.3. ROOM COOLED AND BLANKET REMOVED. RESPIRATIONS EVEN AND UNLABORED ON ROOM AIR. IV SITE APPEARS HEALTHY AND FLUSHES. SAFETY MEASURES IN PLACE. CALL LIGHT WITHIN REACH.
--- NOTE | 2018-01-12 04:30 | NUR ---
BLOOD PRESSURE ELEVATED; APRESOLINE IV ADMINISTERED. NO ACUTE CHANGES IN CONDITION THROUGHOUT THE NIGHT. NEW IV SITE TO [facility]. PT HAS NO REQUESTS OR CONCERNS AT THIS TIME. DRESSING TO RLE CDI. SAFETY MEASURES IN PLACE. CALL LIGHT WITHIN REACH.
--- NOTE | 2018-01-12 07:22 | NUR ---
01/11/18: Patient worked on using a FWW. Her DGI balance score improved to 11/12 and she is able to transfer and ambulate independently in the room. Reccomend a FWW for home
--- NOTE | 2018-01-12 07:46 | NUR ---
PT ASSESSMENT COMPLETE. A/O X3. SPEECH IS CLEAR. PT APPEARS DROWSY AT THIS TIME. RESP EVEN AND UNLABORED. LUNG SOUNDS CLEAR. BOWEL SOUNDS HYPOACTIVE. STRONG RADIAL AND PEDAL PULSES. #22 LFA SL. FLUSHED AND PATENT. SITE APPREAS HEALTHY. SKIN INTACT. NO EDEMA PRESENT. 2 HEALED WOUNDS TO LEFT LOWER LEG RACHEL. NO DRAINAGE OR ODOR. RT LATERAL CALF DRESSING, CDI. PT DENIES ANY PAIN OR NEEDS. POC DISCUSSED. SAFETY PRECAUTIONS IN PLACE. CALL LIGHT IN REACH. CONTACT PRECAUTIONS IN PLACE. WILL CONTINUE TO MONITOR
--- NOTE | 2018-01-12 09:57 | NUR ---
Patient refused physical therapy this morning, she reports just getting out of shower and was in bed resting. Nurse informed of same.
--- NOTE | 2018-01-12 10:26 | NUR ---
PT DRESSING TO RT LATERAL CALF REMOVED. SMALL AMOUNT OF SEROSANGUINEOUS DRAINAGE NOTED. NO FOUL ODOR NOTED. NO SWELLING. CLEANED W/ SALINE. SILVADEN, ADAPTALESSANDRO, STERILE 4X4, KERLIX APPLIED. WILL CONTINUE TO MONITOR
--- NOTE | 2018-01-12 12:11 | NUR ---
PT SLEEPING IN BED. RESP EVEN AND UNLABORED. TELE IN PLACE. PT DENIES ANY PAIN OR NEEDS AT THIS TIME. CALL LIGHT IN REACH. WILL CONTINUE TO MONITOR
--- NOTE | 2018-01-12 16:20 | NUR ---
PT RESTING IN BED. RESP EVEN AND UNLABORED. PT DENIES ANY PAIN OR NEEDS. CALL LIGHT IN REACH. WILL CONTINUE TO MONITOR
--- NOTE | 2018-01-12 19:00 | NUR ---
BEDSIDE REPORT RECEIVED FROM RED TAMAYO. PT RESTING IN BED ON RIGHT SIDE WITH EYES CLOSES; AWAKENS SPONTANEOUSLY. DROWSY AND ORIENTED. DENIES PAIN. RESPIRATIONS EVEN AND UNLABORED ON ROOM AIR. PLAN OF CARE REVIEWED. PT ENCOURAGED TO VERABLIZE CONCERNS. STATES UNDERSTANDING. SAFETY MEAUSRES IN PLACE. CALL LIGHT WITHIN REACH.
[2018-01-13] VITALS (9 sets, daily range): BP systolic 149–198; BP diastolic 64–82
--- NOTE | 2018-01-13 | NUR ---
BLOOD PRESSURE ELEVATED AND IV APRESOLINE ADMINISTERED. DRESSING CHANGED TO RLE; PT TOLERATED WELL. IV SITE APPEARS HEALTHY AND FLUSHES. PT IS STAND BY ASSIST AND AMBULATORY. HS ACCU CHECK 235. NO REQUESTS OR CONCERNS AT THIS TIME. SAFETY MEASURES IN PLACE. CALL LIGHT WITHIN REACH.
--- NOTE | 2018-01-13 04:36 | NUR ---
CLONIDINE GIVEN AT THIS TIME FOR ELEVATED BLOOD PRESSURE 188/82-65. PT AMBULATED TO BATHROOM TO VOID. NO ACUTE CHANGES IN CONDITION THROUGHOUT THE NIGHT.
--- NOTE | 2018-01-13 07:23 | NUR ---
REPORT RECEIVED FROM MADONNA MATHEWS. PT SITTING IN CHAIR AT BEDSIDE. DENIES PAIN. REPORTING OF CONCERNS ENCOURAGED. PLAN OF CARE DISCUSSED. CALL LIGHT REVIEWED AND IN REACH. PT STATES UNDERSTANDING.
--- NOTE | 2018-01-13 09:16 | NUR ---
PT UP TO CHAIR AT BEDSIDE. DENIES PAIN. PT EDUCATED ON MEDICATIONS. STATES UNDERSTANDING. RIGHT LOWER LEG DRSG CHANGED. SILVADENE, ADAPTIC, 4X4'S AND KERLEX APPLIED. LARGE AMOUNT OF SEROSANGINOUS DRAINGE NOTED. CALL LIGHT REVIEWED AND IN REACH.
--- NOTE | 2018-01-13 13:10 | NUR ---
DR. HERNDON IN TO SEE PT. PLAN OF CARE UPDATED. PT STATES UNDERSTANDING.
--- NOTE | 2018-01-13 13:28 | NUR ---
S: PRISCILA ELIAS is a 57 F who presents with cellulitis. She has a history of diabetes, hypertension, and mental disorder . All medications in patient's chart were reviewed. 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 Vancomycin ordered for pharmacy to dose. Vancomycin trough drawn on 01/11/18 was 20. Change dose to Vancomycin 1250mg IV Q12H. Vancomycin trough is drawn before the 5th dose on 01/13/18 @1230. Vancomycin goal trough is between <10-15 mcg/ml>. Pharmacy will follow and or advise on antibiotics use as needed.
--- NOTE | 2018-01-13 13:52 | NUR ---
S: PRISCILA ELIAS is a 57 F who presents with cellulitis. She has a history of diabetes, hypertension, and mental disorder . All medications in patient's chart were reviewed. O: VS: BP 145/64, P 69, RR 17, T 98.1 W 80 kg, HT 170.18 cm, Scr= 0.6, CrCl= 99.39 ml/min A: Blood culture shows no growth after 48 hours. Eye culture shows no growth after 48 hours. P: Patient is on Vancomycin 1250mg IV Q12H. Vancomycin ordered for pharmacy to dose. Vancomycin trough drawn on 01/13/18 was 16 Continue Vancomycin 1250mg IV Q12H. Vancomycin trough is drawn before the 4th dose on 01/15/18 @0030. Vancomycin goal trough is between <10-15 mcg/ml>. Pharmacy will follow and or advise on antibiotics use as needed.
--- NOTE | 2018-01-13 16:20 | NUR ---
BP 187/77. PRN CLONIDINE PO ADMINISTERED PER ORDER. WILL CONTINUE TO MONITOR. PT DENIES COMPLAINTS.
--- NOTE | 2018-01-13 16:20 | NUR ---
PATIENT IS GETTING UP AND DOWN INDEPENDENTLY. SHE HAS A FWW IN THE ROOM AND HAS MET ALL HER LTG FOR HER INPATIENT STAY. WE WILL MONITOR HER FOR ANY NEEDS MOVING FORWARD
--- NOTE | 2018-01-13 17:09 | NUR ---
bp 186/71, apresoline iv administered per prn order. will continue to monitor.
--- NOTE | 2018-01-13 20:40 | NUR ---
LAB CALLED CONCERNED ABOUT WOUND CUTURE. WANTED TO KNOW WHY THE LAB WASNT CALLED TO [facility]. MADE TECH KNOW I WAS UNAWARE WHY THE LAB WASNT CALLED BECAUSE THE CULTURE WAS OBTAINED ON DAY SHIFT AND OFFGOING NURSE STATED SHE WOULD DROP CULTURE OFF ON WAY OUT OF THE BUILDING
--- NOTE | 2018-01-13 20:45 | NUR ---
REPORT RECIEVED FROM OFFGOING NURSE. PT RESTING IN BED. NO S/S OF DISTRESS. NO PAIN NOTED OR VOICED. IV PATENT. MEDICATION TOLERATED WELL. BG COVERRED PER SLIDING SCALE. PT EDUCATED ON DIET FOR DIABETES. PT VOICED UNDERSTANDING. BED IN LWEST POSITION. CALL LIGHTG WITHIN REACH. WILL MONITOR.
--- NOTE | 2018-01-14 | NUR ---
PT RESTING IN BED WITH EYES CLOSED.
[2018-01-14 04:36] VITALS: BP 182/63
--- NOTE | 2018-01-14 07:00 | NUR ---
SHIFT CHANGE REPORT FROM AGATA GERARDO AWAKE AND ALERT AMBULATING FROM BR AT THIS TIME, SETTLED IN RECLINER, DENIED PAIN/DISCOMFORT, CALL [place] IN REACH.
[2018-01-14 07:51] VITALS: BP 191/69
[2018-01-14 11:10] VITALS: BP 172/68
--- NOTE | 2018-01-14 12:00 | NUR ---
AMBULATED TO BR INDEPENDENTLY AND CAUGHT COMING BACK, REMINDED TO CALL FOR ASSISTANCE, SETTLED IN RECLINER, CALL IN REACH.
[2018-01-14] MEDS ORDERED: DAPTOMYCIN500 MG IV (13:02)
[2018-01-14 13:04] VITALS: BP 183/63
[2018-01-14] MEDS ORDERED: ATENOLOL100 M1 PO (14:14)
[2018-01-14 15:24] VITALS: BP 158/74
[2018-01-14 15:25] VITALS: BP 158/74
--- NOTE | 2018-01-14 16:52 | NUR ---
Discharge instructions given. Patient verbalizes understanding of same. Discharged in stable condition via Wheelchair to Home with *Other. All belongings sent with pt. DEBRA PICKED UP PT BY ED ENTRANCE TO TRANSPORT TO [facility]
--- NOTE | 2018-01-14 18:22 | NUR ---
The patient was tried on a straight cane. She is able to perform 200 feet of ambulation with a straight cane and is fred to perform a DGI with straight cane and a score of 11/12. She will do well with a straight cane and is at normal risk for LOB when using it
== END 2018-01-14 16:40 | DRG 603 ==
LOC: ED 07:15 → ED-I 10:11 → ED 10:27 → MS2 10:28
PROVIDERS: Emergency Medicine; ADMIT Internal Medicine Nephrology; ATTEND Internal Medicine Nephrology
DX: L03.115 Cellulitis of right lower limb (principal); L97.919 Non-pressure chronic ulcer of unspecified part of right lower leg with unspecified severity; R78.81 Bacteremia; L03.116 Cellulitis of left lower limb; E11.65 Type 2 diabetes mellitus with hyperglycemia; E11.622 Type 2 diabetes mellitus with other skin ulcer; I10 Essential (primary) hypertension; E78.5 Hyperlipidemia, unspecified; F41.9 Anxiety disorder, unspecified; F32.9 Major depressive disorder, single episode, unspecified; F79 Unspecified intellectual disabilities; H10.9 Unspecified conjunctivitis; D63.8 Anemia in other chronic diseases classified elsewhere; E87.6 Hypokalemia; B95.62 Methicillin resistant Staphylococcus aureus infection as the cause of diseases classified elsewhere; Z79.4 Long term (current) use of insulin; R60.0 Localized edema; T46.1X5A Adverse effect of calcium-channel blockers, initial encounter
CPT/HCPCS: J1650; J3370

== ENCOUNTER 2018-03-24 12:06 | Emergency (ER) | payer OTHER ==
[~2018-03-24] VITALS: Ht 170.2 cm; Wt 85.0 kg
[~2018-03-24 12:06] MED LIST changes: +AMMONIUM LAC122 EX; +ASPIRIN LOW DOS81 MG PO; +ATENOLOL100 M1 PO; +CITALOPRAM20 MG PO; +DAPTOMYCIN500 MG IV; +HYDROXYZ HCL25 MG PO; +LEVEMIR FL100 UNIT/M SC; +LOSARTAN POT50 MG PO
[2018-03-24 14:36] LABS: HEMATOCRIT 39.7 % (37.0-47.0); HEMOGLOBIN 12.5 g/dl (12.0-16.0); IMMATURE GRANULOCYTES 0.4 % (0.0-5.0); MEAN CORPUSCULAR HGB 25.2 pG CALC (26.0-32.0); MEAN CORPUSCULAR HGB CONC 31.5 g/L CALC (32.0-36.0); NEUT# 2.39 thou/uL (2.00-7.15); RED BLOOD COUNT 4.96 mill/uL (4.20-5.60)
[2018-03-24 14:52] LABS: ALKALINE PHOSPHATASE 99 u/l (38-126); BUN 19 mg/dL (7-17); BUN/CREATININE RATIO 32 (12-20 (CALC)); CARBON DIOXIDE 35 mmol/l (22-30); CHLORIDE 97 mmol/l (95-108); CREATININE 0.6 mg/dL (0.5-1.0); GFR > 60 ML/MIN (>=60 (CALC)); GFR FOR AFR.AMER. > 60 ML/MIN (>=60 (CALC)); SODIUM 141 mmol/l (137-146)
[2018-03-24 14:53] LABS: ALBUMIN 4.3 g/dL (3.2-5.0); ANION GAP 14 (6-22 (CALC)); POTASSIUM 4.8 mmol/l (3.5-5.1); SGOT/AST 64 u/l (14-36); TOTAL PROTEIN 8.3 g/dL (6.3-8.2)
[2018-03-24] MEDS ORDERED: LABETALOL100 MG PO (16:11)
[2018-03-24 18:56] VITALS: BP 184/80
== END 2018-03-24 19:40 | disposition home or self-care (01) ==
LOC: ED 12:06
PROVIDERS: Emergency Medicine
DX: I10 Essential (primary) hypertension (principal); E11.9 Type 2 diabetes mellitus without complications

== ENCOUNTER 2018-04-20 06:38 | Day surgery (SDC) | payer OTHER ==
[~2018-04-20] VITALS: Ht 167.6 cm; Wt 108.0 kg
[~2018-04-20 06:38] MED LIST changes: +AMMONIUM LACTATE12 % EX; +ASPIRIN81 MG PO; +HYDROXYZ PAM25 MG PO; +LABETALOL100 MG PO; +LEVEMIR100 UNIT/M IJ; +LOSARTAN POTASS25 MG PO; +[UNRECOGNIZED DRUG - OTHER] PO
[2018-04-20] MEDS ORDERED: IBUPROFEN PO (10:24)
[2018-04-20 10:50] VITALS: BP 184/75
== END 2018-04-20 12:05 | disposition home or self-care (01) ==
LOC: ORM 06:38
PROVIDERS: ATTEND Surgery
DX: A63.0 Anogenital (venereal) warts (principal); D04.5 Carcinoma in situ of skin of trunk; I10 Essential (primary) hypertension; E78.00 Pure hypercholesterolemia, unspecified; E11.9 Type 2 diabetes mellitus without complications; F32.9 Major depressive disorder, single episode, unspecified; F41.1 Generalized anxiety disorder; Z85.828 Personal history of other malignant neoplasm of skin

== ENCOUNTER → 2018-04-23 | Outpatient (REF) | payer OTHER ==
[~2018-04-23] MED LIST changes: +IBUPROFEN PO
[2018-04-23 09:42] LABS: HEMATOCRIT 37.2 % (37.0-47.0); HEMOGLOBIN 11.7 g/dl (12.0-16.0); IMMATURE GRANULOCYTES 0.3 % (0.0-5.0); MEAN CELL VOLUME 80.3 fL CALC (80.0-100.0); MEAN CORPUSCULAR HGB 25.3 pG CALC (26.0-32.0); MEAN CORPUSCULAR HGB CONC 31.5 g/L CALC (32.0-36.0); NEUT# 3.16 thou/uL (2.00-7.15); RED BLOOD COUNT 4.63 mill/uL (4.20-5.60); RED CELL DISTRI WIDTH 16.4 % (11.5-15.5)
== END | disposition home or self-care (01) ==
LOC: LAB 09:09
PROVIDERS: ATTEND Psychiatry & Neurology Psychiatry
DX: F20.0 Paranoid schizophrenia (principal); Z79.899 Other long term (current) drug therapy

== ENCOUNTER → 2018-04-30 | Outpatient (REF) | payer OTHER ==
[2018-04-30 09:17] LABS: HEMATOCRIT 36.1 % (37.0-47.0); HEMOGLOBIN 11.3 g/dl (12.0-16.0); MEAN CELL VOLUME 81.3 fL CALC (80.0-100.0); MEAN CORPUSCULAR HGB 25.5 pG CALC (26.0-32.0); MEAN CORPUSCULAR HGB CONC 31.3 g/L CALC (32.0-36.0); NEUT# 2.41 thou/uL (2.00-7.15); RED BLOOD COUNT 4.44 mill/uL (4.20-5.60); RED CELL DISTRI WIDTH 16.4 % (11.5-15.5)
== END | disposition home or self-care (01) ==
LOC: LAB 08:55
PROVIDERS: ATTEND Psychiatry & Neurology Psychiatry
DX: F20.0 Paranoid schizophrenia (principal); Z79.899 Other long term (current) drug therapy

== ENCOUNTER → 2018-05-07 | Outpatient (REF) | payer OTHER ==
[2018-05-07 10:28] LABS: HEMATOCRIT 34.5 % (37.0-47.0); IMMATURE GRANULOCYTES 0.3 % (0.0-5.0); MEAN CELL VOLUME 81.4 fL CALC (80.0-100.0); MEAN CORPUSCULAR HGB 25.9 pG CALC (26.0-32.0); MEAN CORPUSCULAR HGB CONC 31.9 g/L CALC (32.0-36.0); NEUT# 2.26 thou/uL (2.00-7.15); RED BLOOD COUNT 4.24 mill/uL (4.20-5.60); RED CELL DISTRI WIDTH 16.4 % (11.5-15.5)
== END | disposition home or self-care (01) ==
LOC: LAB 09:14
PROVIDERS: ATTEND Psychiatry & Neurology Psychiatry
DX: F20.0 Paranoid schizophrenia (principal); Z79.899 Other long term (current) drug therapy

== ENCOUNTER → 2018-05-14 | Outpatient (REF) | payer OTHER ==
[2018-05-14 09:53] LABS: HEMATOCRIT 35.6 % (37.0-47.0); IMMATURE GRANULOCYTES 0.2 % (0.0-5.0); MEAN CELL VOLUME 81.7 fL CALC (80.0-100.0); MEAN CORPUSCULAR HGB 25.2 pG CALC (26.0-32.0); MEAN CORPUSCULAR HGB CONC 30.9 g/L CALC (32.0-36.0); NEUT# 2.48 thou/uL (2.00-7.15); RED BLOOD COUNT 4.36 mill/uL (4.20-5.60); RED CELL DISTRI WIDTH 16.7 % (11.5-15.5)
== END | disposition home or self-care (01) ==
LOC: LAB 07:30
PROVIDERS: ATTEND Psychiatry & Neurology Psychiatry
DX: F20.0 Paranoid schizophrenia (principal); Z79.899 Other long term (current) drug therapy

== ENCOUNTER → 2018-05-21 | Outpatient (REF) | payer OTHER ==
[2018-05-21 10:53] LABS: HEMATOCRIT 34.1 % (37.0-47.0); HEMOGLOBIN 10.5 g/dl (12.0-16.0); IMMATURE GRANULOCYTES 0.2 % (0.0-5.0); MEAN CORPUSCULAR HGB 25.5 pG CALC (26.0-32.0); MEAN CORPUSCULAR HGB CONC 30.8 g/L CALC (32.0-36.0); NEUT# 2.01 thou/uL (2.00-7.15); RED BLOOD COUNT 4.11 mill/uL (4.20-5.60); RED CELL DISTRI WIDTH 16.7 % (11.5-15.5)
== END | disposition home or self-care (01) ==
LOC: LAB 09:55
PROVIDERS: ATTEND Psychiatry & Neurology Psychiatry
DX: F20.0 Paranoid schizophrenia (principal); Z79.899 Other long term (current) drug therapy

== ENCOUNTER → 2018-05-26 | Outpatient (REF) | payer OTHER ==
[2018-05-26 09:06] LABS: HEMATOCRIT 36.5 % (37.0-47.0); HEMOGLOBIN 11.4 g/dl (12.0-16.0); IMMATURE GRANULOCYTES 0.2 % (0.0-5.0); MEAN CELL VOLUME 81.1 fL CALC (80.0-100.0); MEAN CORPUSCULAR HGB 25.3 pG CALC (26.0-32.0); MEAN CORPUSCULAR HGB CONC 31.2 g/L CALC (32.0-36.0); NEUT# 3.37 thou/uL (2.00-7.15); RED BLOOD COUNT 4.5 mill/uL (4.20-5.60); RED CELL DISTRI WIDTH 16.6 % (11.5-15.5)
[2018-05-26 09:20] LABS: ALBUMIN 3.8 g/dL (3.2-5.0); ALKALINE PHOSPHATASE 96 u/l (38-126); ANION GAP 11 (6-22 (CALC)); BILIRUBIN, TOTAL 0.4 mg/dL (0.0-1.4); BUN 20 mg/dL (7-17); BUN/CREATININE RATIO 28 (12-20 (CALC)); CARBON DIOXIDE 35 mmol/l (22-30); CHLORIDE 100 mmol/l (95-108); CREATININE 0.7 mg/dL (0.5-1.0); GFR > 60 ML/MIN (>=60 (CALC)); GFR FOR AFR.AMER. > 60 ML/MIN (>=60 (CALC)); POTASSIUM 3.4 mmol/l (3.5-5.1); SGOT/AST 35 u/l (14-36); SODIUM 142 mmol/l (137-146); TOTAL PROTEIN 7.3 g/dL (6.3-8.2)
[2018-05-26 09:51] LABS: TSH, 3RD GENERATION 0.57 uIU/mL (0.47 - 4.68)
== END | disposition home or self-care (01) ==
LOC: LAB 08:15
PROVIDERS: ATTEND Internal Medicine
DX: D01.3 Carcinoma in situ of anus and anal canal (principal)

== ENCOUNTER → 2018-05-27 | Outpatient (REF) | payer OTHER | END | disposition home or self-care (01) | LOC: DI 09:58 | PROVIDERS: ATTEND Internal Medicine | DX: Z45.2 Encounter for adjustment and management of vascular access device (principal); D01.3 Carcinoma in situ of anus and anal canal ==